=== PATIENT | female | born 1990 | race Caucasian/White ===

== ENCOUNTER 2021-09-27 09:00 | Inpatient (IN) | payer OTHER ==
[2021-09-27] VITALS (17 sets, daily range): BP systolic 123–152; BP diastolic 84–110; PULSE 68–102; TEMP 97.7–99.1
[~2021-09-27] VITALS: Ht 167.6 cm; Wt 89.1 kg
[~2021-09-27 09:00] MED LIST: CEPHALEXIN500 M1 PO; IBU800 M1 PO; MOTRIN 600600 MG/TAB PO; OYSCO 500500 M1 PO; PERCOCET 325 MG1 TA2 PO; PRENATAL MVI; PROCARDIA XL 3030 MG PO
--- NOTE | 2021-09-27 09:15 | NUR ---
Presents to ob floor for repeat section. Iv to left hand, fluids of lactated ringers started as ordered after lab obatained and sent. Assessment done, questions offered and answered.
[2021-09-27 10:11] LABS: HEMATOCRIT 40.4 % (37.0-47.0); MEAN CELL VOLUME 89 fl (80.0-100.0); MEAN CORPUSCULAR HEMOGLOBIN 31 pg (27-31); MEAN CORPUSCULAR HGB CONC 35 g/dl (33.0-37.0); MEAN PLATELET VOLUME 12.1 fl (7.4-10.4); PLATELET COUNT 191 K/mm3 (130-400); RED BLOOD COUNT 4.53 M/mm3 (4.10-5.30); REDCELL DISTRIBUTION WIDTH-CV 13.2 % (11.5-14.5)
[2021-09-27] MEDS ORDERED: CALCIUM 600 MG1 EAC2 (10:14)
[2021-09-27 10:39] LABS: BAND 1 % (0-10); BASOPHIL 1 % (0-2); LYMPHOCYTE 14 % (20.0-51.0); NEUTROPHILS 70 % (42.0-75.2); PLATELET ESTIMATE NORMAL (NORMAL)
--- NOTE | 2021-09-27 17:02 | NUR ---
BP SLIGHTLY ELEVATED, WILL CONTINUE TO MONITOR. SHADOW OF DRAINAGE NOTED ON DRESSING, OUTLINED AND TIME STAMPED BY THIS RN.
[2021-09-28 00:30] VITALS: BP 128/85; PULSE 72; TEMP 97.8
[2021-09-28 07:30] VITALS: BP 147/89; PULSE 79; TEMP 98.5
[2021-09-28 13:00] VITALS: BP 126/81; PULSE 91; TEMP 97.6
[2021-09-28 20:45] VITALS: BP 130/75; PULSE 83; TEMP 98
[2021-09-29 08:15] VITALS: BP 133/82; PULSE 87; TEMP 97.8
[2021-09-29] MEDS ORDERED: IBU800 M1 PO (09:26)
[2021-09-29] MEDS ORDERED: PROCARDIA XL 3030 MG PO (09:26)
[2021-09-29] MEDS ORDERED: ROXICODONE 55 MG/TAB PO (09:26)
== END 2021-09-29 13:00 | disposition home or self-care (01) | DRG 788 ==
LOC: OB 09:00
PROVIDERS: ADMIT Obstetrics & Gynecology
PROC: 10D00Z1 Extraction of Products of Conception, Low, Open Approach (ICD-10-PCS; principal; 2021-09-27)
DX: O34.211 Maternal care for low transverse scar from previous cesarean delivery (principal); O13.4 Gestational [pregnancy-induced] hypertension without significant proteinuria, complicating childbirth; Z37.0 Single live birth; O34.03 Maternal care for unspecified congenital malformation of uterus, third trimester; Q51.3 Bicornate uterus; Z3A.39 39 weeks gestation of pregnancy; Z23 Encounter for immunization
CPT/HCPCS: J0690; J1885; J2405; J2590; J7120